=== PATIENT | female | born 1945 | race Two or more races ===

== ENCOUNTER 2017-07-11 06:50 | Day surgery (SDC) | payer MEDICARE, OTHER ==
[~2017-07-11] VITALS: Ht 152.4 cm; Wt 50.8 kg
[~2017-07-11 06:50] MED LIST: ACIPHEX20 MG ORAL; CALCIUM + D SO1 EACH PO; CO Q-10100 M1 PO; CRESTOR10 M1 ORAL; CYMBALTA20 MG ORAL; HYDROXYCHLOROQ200 M1 PO; LEVOTHYROXINE75 MCG ORAL; METFORMIN HCL500 M5 PO; OMEGA 3 FISH O1 EAC1 PO; OMEPRAZOLE40 M1 ORAL; VITAMIN D400 INTLU ORAL; WELCHOL625 MG ORAL
[2017-07-11] MEDS ORDERED: LR 1000ml 1,000 ML IVLG ONE (07:00)
[2017-07-11 07:32] VITALS: BP 132/78
--- NOTE | 2017-07-11 07:53 | Short Stay Surgery H&P ---
History of Present Illness History of Present Illness Chief Complaint GERDs and abdominal pains, screening colon. HPI Jenny Wright is a 72 year old female who was admitted on for Gerd.abdominal Pain/screening colon Patient History Allergies: Coded Allergies: LATEX (Verified Allergy, Severe, 07/10/17) SIDE OF SKIN OF FINGERS GETS HARD PAST MEDICAL HISTORY: (1) Diabetes (2) Renal cyst (3) CVA (cerebral vascular accident) (4) Diverticula of colon (5) Hypothyroid Past Surgeries: Social History: Medication History Scheduled Ca Carbonate/Vitamin D3/Vit K (Calcium + D Soft Chewable Tab), 1 EACH PO DAILY, (Reported) Duloxetine (Cymbalta), 20 MG ORAL DAILY, (Reported) Hydroxychloroquine Sulfate (Hydroxychloroquine Sulfate), 200 MG PO DAILY, ( Reported) Levothyroxine Sodium* (Levothyroxine Sodium*), 75 MCG ORAL DAILY, (Reported) Metformin HCl (Metformin HCl ER), 500 MG PO BID, (Reported) [place]-3 Fatty Acids/Fish Oil ([place] 3 Fish Oil Softgel), 1 EACH PO DAILY, ( Reported) Omeprazole (Omeprazole), 40 MG ORAL DAILY, (Reported) Ubidecarenone (Co Q-10), 100 MG PO DAILY, (Reported) Vitamin D (Vitamin D3), 1,000 UNITS ORAL DAILY, (Reported) Discontinued Medications Colesevelam Hcl (Welchol), 625 MG ORAL BID, (Reported) Discontinued Reason: Pt stopped taking med Rabeprazole Sodium (Aciphex), 20 MG ORAL DAILY, (Reported) Discontinued Reason: Pt stopped taking med Review of Systems Cardiovascular: Reports: no symptoms Respiratory: Reports: no symptoms Skeletal: Reports: no symptoms Gastrointestinal: Reports: gastro esophageal reflux disease Genitourinary: Reports: no symptoms Neurologic: Reports: no symptoms Endocrine: Reports: no symptoms, diabetes - type 2 Hematologic: Reports: no symptoms Physical Exam Vital Signs Last Vital Signs Date Time Temp Pulse Resp B/P (MAP) Pulse Ox O2 Delivery O2 Flow Rate FiO2 07/11/17 07:32 97.8 74 18 132/78 98 Room Air Skin: normal HENT: normal Heart: normal Lungs: normal Abdomen: normal Extremities: normal Genitourinary: normal Plan Plan of Care Upper and lower GI endoscopies Preop Interventions None. Summary of Findings See the reports Final Diagnosis: Attestation Are the patient's medical conditions optimized for surgery? Attestation Response: yes RAHEEM,SAID Jul 11, 2017 07:53
--- NOTE | 2017-07-11 07:55 | Pre-Procedure Note/Attestation ---
Pre-Procedure Note/Attestation Complete Prior to Procedure Planned Procedure: left Procedure Narrative: Endoscopic exam of the upper and the lower GI tract. Indications for Procedure Pre-Operative Diagnosis: R/O gastric CA and colon CA. Attestation I attest that I discussed the nature of the procedure; its benefits; risks and complications; and alternatives (and the risks and benefits of such alternatives ), prior to the procedure, with the patient (or the patient's legal route sales representative). I attest that, if there was a reasonable possibility of needing a blood transfusion, the patient (or the patient's legal route sales representative) was given the [place] Department [employer] standardized written summary, pursuant to the Ismael Oly Blood Safety Act ([place] Health and Safety Code # 1645, as amended). I attest that I re-evaluated the patient just prior to the surgery and that there has been no change in the patient's H&P, except as documented below: RAHEEM,SAID Jul 11, 2017 07:55
[2017-07-11] MEDS ORDERED: Propofol 200mg/20ml IV ONE (08:00)
[2017-07-11] MEDS ORDERED: LR 1000ml ONE (08:00)
--- NOTE | 2017-07-11 08:41 | Endoscopy Procedure Note ---
Endoscopy Procedure Note Indication for Procedure: Abdominal pains/GERDs and screening colon Procedures Performed: EGD - Bile in stomach consistent with duodeno-gastric bile reflux, otherwise normal study. Random biopsy obtained from gastric body., colonoscopy - Very difficult exam due to significant redundancy of colon with poor prep. Mild internal hemorrhoids and generalized colonic diverticulosis found as examinationed was done upto the base of the cecum. Anesthesiologist: Anesthesia: moderate sedation Medication Given: see anesthesia record Implant(s) used?: No 50 yrs or older w/o bx or poly: Yes 10yrs. F/U not recommended: Yes 10 yrs. F/U needed: Yes Med reason:<3 yrs.: System Reason:<3 yrs.: Last colonoscopy >= to 3yrs: Yes YEN MACIEL Jul 11, 2017 08:41
--- NOTE | 2017-07-11 08:43 | Discharge Instructions ---
Discharge Instructions Discharge Instructions Follow up with: visit the doctor after two weeks in the office. For Congestive Heart Failure Reminder Report to your physician any weight gain of 5 pounds or more in one week. YEN MACIEL Jul 11, 2017 08:43
[2017-07-11 08:50] VITALS: BP 114/74
[2017-07-11 08:55] VITALS: BP 118/81
[2017-07-11 09:00] VITALS: BP 122/76
[2017-07-11 09:15] VITALS: BP 113/72
--- NOTE | 2017-07-11 09:34 | Anethesia Preoperative Eval ---
Anesthesia Pre-op PMH/ROS General Date of Evaluation: Jul 11, 2017 Time of Evaluation: 07:55 Anesthesiologist: viet ASA Score: ASA 2 Mallampati Score Class I : Soft palate, uvula, fauces, pillars visible Class II: Soft palate, uvula, fauces visible Class III: Soft palate, base of uvula visible Class IV: Only hard plate visible Mallampati Classification: Class II Allergies: Coded Allergies: LATEX (Verified Allergy, Severe, 07/10/17) SIDE OF SKIN OF FINGERS GETS HARD Anesthesia Pre-op Phys. Exam Physician Exam Last Vital Signs Date Time Temp Pulse Resp B/P (MAP) Pulse Ox O2 Delivery O2 Flow Rate FiO2 07/11/17 09:00 64 20 122/76 99 Room Air 07/11/17 08:55 3.0 07/11/17 08:50 97.5 Airway Exam Mallampati Score: Class I Akua Soriano MD Jul 11, 2017 09:34
--- NOTE | 2017-07-11 09:35 | Immediate Post-Op Evaluation ---
Immediate Post-Op Evalulation Immediate Post-Op Evalulation Procedure: egc and colonoscopy Date of Evaluation: Jul 11, 2017 Time of Evaluation: 09:00 Nausea: No Vomiting: No Patient Status: awake Hydration Status: adequate Akua Soriano MD Jul 11, 2017 09:35
--- NOTE | 2017-07-11 09:35 | 48 Hour Post Anesthesia Eval ---
Post Anesthesia Evaluation Procedure: egc and colonoscopy Date of Evaluation: Jul 11, 2017 Time of Evaluation: 09:35 Nausea: No Vomiting: No Follow-up care needed: ready to discharge Akua Soriano MD Jul 11, 2017 09:35
[2017-07-11 09:50] VITALS: BP 127/78
--- NOTE | 2017-07-11 18:00 | Operative Note - Dictated ---
DATE OF OPERATION: 07/11/2017 SURGEON: Bautista Canas M.D. PROCEDURE: Esophagogastroduodenoscopy with biopsy. PREOPERATIVE DIAGNOSES: 1. Abdominal pain. 2. History of chronic gastroesophageal reflux. POSTOPERATIVE DIAGNOSIS: Increasing bile in the stomach consistent with duodenal gastric bile reflux, otherwise, normal study. Biopsy was taken per random from gastric body. MEDICATION USED: Per Dr. Vela, anesthesiologist. INSTRUMENT: GIF Olympus upper GI video endoscope. DESCRIPTION OF PROCEDURE: The patient after arriving in endoscopy unit was told about risks and benefits of the procedure, which she accepted and signed the informed consent. She was then put on the left lateral decubitus position. After adequate IV sedation, the scope was passed through the cricopharyngeal area, was lodged into the upper esophagus, and gradually advanced towards gastroesophageal junction. The entire length of the esophagus looked normal. There was no evidence of inflammatory process, ulceration, stricture, varices, etc. GE junction also looked normal. No Denson's or hiatal hernia. The scope, at this time, was advanced into the stomach, which demonstrated significant amount of thick bile collected into the stomach all over the gastric body. This area had to be irrigated and subsequently the areas of the fundus and the body and the antrum were examined in an educational institution curator fashion, which revealed normal underlying mucosa and there was no any ulcers, tumors, polyps, hemangioma, etc. At this point, one random biopsy from gastric body obtained and subsequently, the scope was passed through normal looking pylorus. First and second portion of duodenum were also found to be completely normal. At this time, the scope was pulled back into the stomach. A retroflexion maneuver was applied and the area of the fundus of the stomach was examined, which also looked normal except evidence of presence of bile as I mentioned. Finally, procedure was terminated. The patient tolerated the procedure well. Bautista Canas M.D. DR: DAVIN JOB#: [id number] CC:
--- NOTE | 2017-07-14 10:15 | Procedure Note ---
DATE OF PROCEDURE: 07/11/2017 PROCEDURE: Total colonoscopy. PREOPERATIVE DIAGNOSES: Abdominal pain and screening colonoscopy. POSTOPERATIVE DIAGNOSES: 1. Extremely very difficult colonoscopic examination due to high redundancy of the colon. 2. Minimal internal hemorrhoid. 3. Generalized diverticulosis of the colon. 4. Poor colonic preparation. MEDICATION USED: Per Dr. Vela, anesthesiologist. INSTRUMENT: GIF Olympus videocolonoscope. SURGEON: Bautista Canas MD REFERRING PHYSICIAN: DESCRIPTION OF PROCEDURE: The patient, after arriving endoscopy unit, was told about risks and benefits of the procedure, which she accepted and signed the informed consent. At this time, she was put in left lateral decubitus position and after adequate IV sedation, examination of the anorectal area revealed evidence of minimal internal hemorrhoids, otherwise, the rectum was completely normal without any evidence of pathology. At this time, due to significant amount of time, the scope was passed through a highly redundant twisted colon finally reaching to the splenic flexure. The colon prep was not adequate as there was small formed stool along the colon making the examination even more difficult and required more time to spend. Finally, the scope gradually reached towards the transverse colon passing through the hepatic flexure and ultimately guided into the base of the cecum. All these areas revealed normal except generalized diverticular lesions all over the colon, mostly on the left side, however. Finally, within 6 minutes, the scope gradually was pulled out from the base of the cecum up through the anal area and finding no other abnormalities procedure was terminated. The patient tolerated the procedure well and left the endoscopy room in a good condition. Bautista Canas M.D. DR: SERENA JOB#: [id number] CC:
== END 2017-07-11 10:05 | disposition home or self-care (01) ==
LOC: GAS 06:50
DX: Z12.11 Encounter for screening for malignant neoplasm of colon (principal); K64.8 Other hemorrhoids; K57.30 Diverticulosis of large intestine without perforation or abscess without bleeding; K21.9 Gastro-esophageal reflux disease without esophagitis; E11.9 Type 2 diabetes mellitus without complications; E03.9 Hypothyroidism, unspecified; Z86.73 Personal history of transient ischemic attack (TIA), and cerebral infarction without residual deficits; Z91.040 Latex allergy status; K29.50 Unspecified chronic gastritis without bleeding
CPT/HCPCS: 43239; 82962; G0121; J2704; J7120; 94003; 94150